=== PATIENT | male | born 1995 | race African-American/Black ===

== ENCOUNTER 2019-02-01 20:08 | Emergency (ER) | payer SELFPAY ==
--- NOTE | 2019-02-01 20:49 | ER ---
Nurse's Notes [facility] Name: Vinod Denny Jr Age: 23 yrs Sex: Male : 1995 Arrival Date: 02/01/2019 Time: 20:12 Bed 7 Private MD: Diagnosis: Vomiting;Diarrhea, unspecified Presentation: 02/01 20:20 Presenting complaint: Patient states: V/D, chills, and headache since this am. Reports aa1 he had to miss to work and needs to be checked out so he can go back. Transition of care: patient was not received from another setting of care. Onset of symptoms was February 01, 2019. Risk Assessment: Do you want to hurt yourself or someone else? Patient reports no desire to harm self or others. Initial Sepsis Screen: Does the patient meet any 2 criteria? No. Patient's initial sepsis screen is negative. Does the patient have a suspected source of infection? No. Patient's initial sepsis screen is negative. Care prior to arrival: None. 20:20 Method Of Arrival: Ambulatory aa1 20:20 Acuity: SERGEY 3 aa1 Triage Assessment: 20:22 General: Appears in no apparent distress. comfortable, Behavior is calm, cooperative, aa1 appropriate for age. Historical: - Allergies: 20:22 No Known Allergies; aa1 - Home Meds: 20:22 None [Active]; aa1 - PMHx: 20:22 Asthma; aa1 - PSHx: 20:22 hand sx; aa1 - Immunization history:: Flu vaccine is not up to date. - Social history:: Smoking status: Patient uses tobacco products, denies chronic smoking, but will smoke occasionally. - Ebola Screening: : Patient denies exposure to infectious person Patient denies travel to an Ebola-affected area in the 21 days before illness onset. - Family history:: not pertinent. Screenin:42 Abuse screen: Denies threats or abuse. Denies injuries from another. Nutritional ak1 screening: No deficits noted. Tuberculosis screening: No symptoms or risk factors identified. Fall Risk None identified. Assessment: 20:45 General: Appears in no apparent distress. Behavior is calm, cooperative. Pain: ak1 Complains of pain in body aches. Neuro: No deficits noted. Neuro: No deficits noted. Cardiovascular: No deficits noted. Respiratory: No deficits noted. GI: Abdomen is flat, non-distended, Bowel sounds present X 4 quads. Abd is soft and non tender X 4 quads. Reports diarrhea, nausea, vomiting, since this morning both his children are in summer school that had N/V/D X1 day. : No signs and/or symptoms were reported regarding the genitourinary system. EENT: No deficits noted. Derm: Reports fever. Musculoskeletal: No signs and/or symptoms reported regarding the musculoskeletal system. Vital Signs: 20:22 BP 131 / 58; Pulse 95; Resp 18; Temp 98.3; Pulse Ox 99% on R/A; Weight 70.31 kg; Height aa1 5 ft. 9 in. (175.26 cm); Pain 5/10; 20:54 BP 121 / 72; Pulse 84; Resp 18; Temp 98.5(O); Pulse Ox 100% on R/A; mw2 20:22 Body Mass Index 22.89 (70.31 kg, 175.26 cm) aa1 ED Course: 20:12 Patient arrived in ED. es 20:21 Triage completed. aa1 20:22 Arm band placed on left wrist. aa1 20:34 Shivam Doe MD is Attending Physician. chandana 20:41 Olga Fernando RN is Primary Nurse. ak1 20:42 Patient has correct armband on for positive identification. Placed in gown. Bed in low ak1 position. Call light in reach. Side rails up X2. Adult w/ patient. Pulse ox on. NIBP on. Door closed. Lights dimmed. 20:51 No provider procedures requiring assistance completed. Patient did not have IV access ak1 during this emergency room visit. Administered Medications: No medications were administered Outcome: 20:49 Discharge ordered by . chandana 20:56 Discharged to home ambulatory, with family. ak1 20:56 Condition: good 20:56 Discharge instructions given to patient, family, Instructed on discharge instructions, follow up and referral plans. medication usage, Demonstrated understanding of instructions, follow-up care, medications, Prescriptions given X 1. 21:01 Patient left the ED. ak1 Signatures: Natalee Manley RN RN aa1 Shivam Doe MD MD cha Salyer, Edna es Krenek, Amber, RN RN ak1 Edson Hopkins mw2
--- NOTE | 2019-02-01 20:50 | EDPHYS ---
Physician Documentation [facility] Name: Vinod Denny Jr Age: 23 yrs Sex: Male : 1995 Arrival Date: 02/01/2019 Time: 20:12 Bed 7 Private MD: ED Physician Shivam Doe HPI: 02/01 20:47 This 23 yrs old Black Male presents to ER via Ambulatory with complaints of Flu chandana Symptoms. 20:47 This 23 yrs old Black Male presents to ER via Ambulatory with complaints of Flu chandana Symptoms. 20:47 The patient presents to the emergency department with nausea, vomiting, diarrhea. chandana Onset: The symptoms/episode began/occurred this morning. Possible causes: unknown. weak, achy, some better now. Associated signs and symptoms: The patient has no apparent associated signs or symptoms. Severity of symptoms: At their worst the symptoms were mild in the emergency department the symptoms are unchanged. The patient has not experienced similar symptoms in the past. Historical: - Allergies: 20:22 No Known Allergies; aa1 - Home Meds: 20:22 None [Active]; aa1 - PMHx: 20:22 Asthma; aa1 - PSHx: 20:22 hand sx; aa1 - Immunization history:: Flu vaccine is not up to date. - Social history:: Smoking status: Patient uses tobacco products, denies chronic smoking, but will smoke occasionally. - Ebola Screening: : Patient denies exposure to infectious person Patient denies travel to an Ebola-affected area in the 21 days before illness onset. - Family history:: not pertinent. ROS: 20:47 Constitutional: Negative for fever, chills, and weight loss, Eyes: Negative for injury, chandana pain, redness, and discharge, ENT: Negative for injury, pain, and discharge, Neck: Negative for injury, pain, and swelling, Cardiovascular: Negative for chest pain, palpitations, and edema, Respiratory: Negative for shortness of breath, cough, wheezing, and pleuritic chest pain, Back: Negative for injury and pain, : Negative for injury, bleeding, discharge, and swelling, MS/Extremity: Negative for injury and deformity, Skin: Negative for injury, rash, and discoloration, Neuro: Negative for headache, weakness, numbness, tingling, and seizure, Psych: Negative for depression, anxiety, suicide ideation, homicidal ideation, and hallucinations, Allergy/Immunology: Negative for hives, rash, and allergies, Endocrine: Negative for neck swelling, polydipsia, polyuria, polyphagia, and marked weight changes, Hematologic/Lymphatic: Negative for swollen nodes, abnormal bleeding, and unusual bruising. 20:47 Abdomen/GI: Positive for nausea and vomiting, diarrhea. Exam: 20:47 Constitutional: This is a well developed, well nourished patient who is awake, alert, chandana and in no acute distress. Head/Face: Normocephalic, atraumatic. Eyes: Pupils equal round and reactive to light, extra-ocular motions intact. Lids and lashes normal. Conjunctiva and sclera are non-icteric and not injected. Cornea within normal limits. Periorbital areas with no swelling, redness, or edema. ENT: Nares patent. No nasal discharge, no septal abnormalities noted. Tympanic membranes are normal and external auditory canals are clear. Oropharynx with no redness, swelling, or masses, exudates, or evidence of obstruction, uvula midline. Mucous membranes moist. Neck: Trachea midline, no thyromegaly or masses palpated, and no cervical lymphadenopathy. Supple, full range of motion without nuchal rigidity, or vertebral point tenderness. No Meningismus. Chest/axilla: Normal chest wall appearance and motion. Nontender with no deformity. No lesions are appreciated. Cardiovascular: Regular rate and rhythm with a normal S1 and S2. No gallops, murmurs, or rubs. Normal PMI, no JVD. No pulse deficits. Respiratory: Lungs have equal breath sounds bilaterally, clear to auscultation and percussion. No rales, rhonchi or wheezes noted. No increased work of breathing, no retractions or nasal flaring. Abdomen/GI: Soft, non-tender, with normal bowel sounds. No distension or tympany. No guarding or rebound. No evidence of tenderness throughout. Back: No spinal tenderness. No costovertebral tenderness. Full range of motion. Male : Normal genitalia with no discharge or lesions. Skin: Warm, dry with normal turgor. Normal color with no rashes, no lesions, and no evidence of cellulitis. MS/ Extremity: Pulses equal, no cyanosis. Neurovascular intact. Full, normal range of motion. Neuro: Awake and alert, GCS 15, oriented to person, place, time, and situation. Cranial nerves II-XII grossly intact. Motor strength 5/5 in all extremities. Sensory grossly intact. Cerebellar exam normal. Normal gait. Psych: Awake, alert, with orientation to person, place and time. Behavior, mood, and affect are within normal limits. Vital Signs: 20:22 BP 131 / 58; Pulse 95; Resp 18; Temp 98.3; Pulse Ox 99% on R/A; Weight 70.31 kg; Height aa1 5 ft. 9 in. (175.26 cm); Pain 5/10; 20:54 BP 121 / 72; Pulse 84; Resp 18; Temp 98.5(O); Pulse Ox 100% on R/A; mw2 20:22 Body Mass Index 22.89 (70.31 kg, 175.26 cm) aa1 MDM: 20:34 Patient medically screened. [facility] 20:48 Data reviewed: vital signs, nurses notes. [facility] Administered Medications: No medications were administered Disposition: 02/01/19 20:49 Discharged to Home. Impression: Vomiting, Diarrhea, unspecified. - Condition is Stable. - Discharge Instructions: Food Choices to Help Relieve Diarrhea, Adult, Diarrhea, Adult, Nausea and Vomiting, Adult, Nausea and Vomiting, Adult, [id number], Diarrhea, Adult, [id number]. - Prescriptions for Zofran 4 mg Oral Tablet - take 1 tablet by ORAL route every 12 hours As needed; 10 tablet. - Medication Reconciliation Form, Thank You Letter, Antibiotic Education, Prescription Opioid Use, Work release form form. - Follow up: Private Physician; When: 2 - 3 days; Reason: Recheck today's complaints, Re-evaluation by your physician. - Problem is new. - Symptoms have improved. Signatures: Natalee Manley RN RN aa1 Shivam Doe MD MD cha Krenek, Amber RN RN ak1 Corrections: (The following items were deleted from the chart) 21:01 20:49 02/01/2019 20:49 Discharged to Home. Impression: Vomiting; Diarrhea, unspecified. ak1 Condition is Stable. Forms are Medication Reconciliation Form, Thank You Letter, Antibiotic Education, Prescription Opioid Use. Follow up: Private Physician; When: 2 - 3 days; Reason: Recheck today's complaints, Re-evaluation by your physician. Problem is new. Symptoms have improved. chandana
== END 2019-02-01 21:01 | disposition home or self-care (01) ==
LOC: ER 20:08
DX: R19.7 Diarrhea, unspecified (principal); Z72.0 Tobacco use
CPT/HCPCS: 99283

== ENCOUNTER 2022-04-15 20:11 | Emergency (ER) | payer OTHER, SELFPAY ==
--- OUTSIDE RECORDS SUMMARY | 2022-04-15 20:14 | XMS REPORT | Continuity of Care Document ---
:1995 Author Organization [facility] t Address [address] [place] [address] Care Team Providers Name Role Phone Asked, No Pcp Primary Care Physician Unavailable Robin Gómez DO Attending Clinician [phone] Problems This patient has no known problems. Allergies, Adverse Reactions, Alerts This patient has no known allergies or adverse reactions. Social History Social Habit Start Date Stop Date Quantity Comments Source Sex Assigned At [birth year] [facility] 00:00:00 00:00:00 Smoking Status Start Date Stop Date Source Tobacco smoking consumption unknown [facility] Medications Ordered Filled Start Stop Current Ordering Indication Dosage Frequency Signature Comments Components Source Medication Medication Date Date Medication? Clinician (SIG) Name Name No known 2020-08 No No known Metho di medications 2-[address] [facility] No known 2020-08 No No known Metho di medications 2-[address] 02[facility]55[facility] l Vital Signs Vital Name Observation Time Observation Value Comments Source Systolic blood 2021-07-29 10:43:00 128 mm[Hg] [facility] pressure Diastolic blood 2021-07-29 10:43:00 74 mm[Hg] [facility] pressure Heart rate 2021-07-29 10:43:00 84 /min [facility] Body temperature 2021-07-29 10:43:00 36.83 [facility] Respiratory rate 2021-07-29 10:43:00 18 /min [facility] Oxygen saturation in 2021-07-29 10:43:00 100 /min [facility] Arterial blood by Pulse oximetry BMI 2021-07-29 08:41:00 22.96 kg/m2 [facility] Body height 2021-07-29 08:41:00 177.8 cm [facility] Body weight 2021-07-29 08:41:00 72.576 kg [facility] Procedures Procedure Date / Time Performed Performing Clinician Sour e STREP SCREEN CULTURE 2021-07-30 09:22:00 [facility] INFLUENZA ANTIGEN 2021-07-29 09:23:00 [facility] RESPIRATORY PATHOGEN 2021-07-29 09:23:00 [facility] PANEL WITH COVID-19 RT-PCR GROUP A STREP, RAPID 2021-07-29 09:22:00 [facility] ANTIGEN Encounters Start End Encounter Admission Attending Care Care Encounter Source Date/Time Date/Time Type Type Clinicians Facility Department ID 2021-08-28 2021-08-28 Outpatient [facility] 00:00:00 00:00:00 5 2021-08-20 2021-08-20 Outpatient [facility] 00:00:00 00:00:00 2 2021-07-29 2021-07-29 Emergency [facility], [id number] [facility] 02:43:00 05:10:[id number] [facility] 3.430.2.7 [facility] .[id number] l .8 2021-07-29 2021-07-29 Emergency [facility], 1.2.840.1 [id number] Methodi 02:43:00 05:10:[id number] [facility] 3.430.2.7 [facility] .[id number] l .8 Results Test Description Test Time Test Comments Results Result Comments Source Strep screen culture 2021-07-31 18:15:39 Test Item Value Reference Range Interpretation Comme nts Strep screen culture No beta hemolytic Sp ecimen InformationSpecimen isolate (test code = Streptococci isolated Source: ThroatSpecimen Site: Not 2246) otherwise speci [facility]ied [facility] [id number] 18:15:39 Test Item Value Reference Range Interpretation Comments Strep screen No beta hemolytic Specimen culture Streptococci InformationSpec imen isolate (test isolated Source: Throat Specimen code = 2246) Site: Not other [place] specified [facility]
[2022-04-15 22:06] LABS: Urine Blood Negative (Negative); Urine Glucose Negative (Negative); Urine Protein 3+ (Negative); Urine Specific Gravity >=1.030 (1.005-1.030); Urine pH 5.5 (5.0-7.0)
[2022-04-15] MEDS ORDERED: NA CHLORIDE 0.9% 1,000 ML ONE (22:19)
[2022-04-15] MEDS ORDERED: ONDANSETRON 4 MG/2 ML VIAL ONE (22:19)
[2022-04-15] MEDS ORDERED: FAMOTIDINE 20 MG/2 ML VIAL IV ONE (22:20)
[2022-04-15 22:28] LABS: Barbiturates NEGATIVE (NEGATIVE); Benzodiazepines NEGATIVE (NEGATIVE); Cocaine NEGATIVE (NEGATIVE); METHAMPHETAM NEGATIVE (NEGATIVE); Methadone NEGATIVE (NEGATIVE); Opiates NEGATIVE (NEGATIVE); Phencyclidine NEGATIVE (NEGATIVE); THC Cannibis POSITIVE (NEGATIVE); Urine Bacteria 20-50 /HPF (<20); Urine Mucus 4+ /HPF (None Seen); Urine RBC <5 /HPF (None Seen)
--- NOTE | 2022-04-15 22:36 | RAD REPORT ---
EXAM DESCRIPTION: CTAbdomen Pelvis W Contrast - 04/15/2022 10:29 pm CLINICAL HISTORY: lower abdomen pain COMPARISON: No comparisons TECHNIQUE: CT of the abdomen and pelvis was performed. All CT scans are performed using dose optimization technique as appropriate and may include automated exposure control or mA/KV adjustment according to patient size. FINDINGS: Lower chest: No acute abnormality. Liver: No acute abnormality or suspicious lesions. Biliary: No biliary ductal dilatation. Stomach: No significant focal abnormality. Duodenum: No significant focal abnormality. Pancreas: No significant abnormality. Spleen: No significant abnormality. Adrenal: No suspicious lesions. Kidney/ureter: No hydronephrosis. No renal calculi. Too small to characterize and/or benign appearing renal lesions are noted. Retroperitoneum: No retroperitoneal adenopathy. Vascular: No aneurysm. Bowel: No significant focal abnormality. Normal appendix. Peritoneum: No ascites or free air. Bladder: Grossly unremarkable. Reproductive: No adnexal masses. Bones: No acute fracture. Other: n/a IMPRESSION: No acute intra-abdominal or pelvic finding. Normal appendix.
[2022-04-15 23:02] LABS: Absolute Lymphocytes (CBC) 0.7 K/uL (0.7-4.9); Hematocrit 46.5 % (39.6-49.0); Lymphocytes % 11.8 % (15.3-44.8); MCV 89.5 fL (80-100); MPV 8.1 fL (7.6-11.3); RBC Red Blood Cell Count 5.19 M/uL (4.33-5.43)
[2022-04-15 23:25] LABS: Albumin 3.6 g/dL (3.4-5.0); Bilirubin Total 0.7 mg/dL (0.2-1.0); Potassium 3.9 mmol/L (3.5-5.1); Protein, Total 8.4 g/dL (6.4-8.2)
--- NOTE | 2022-04-15 23:50 | EDPHYS ---
Physician Documentation [facility] Name: Vinod Denny Jr Age: 26 yrs Sex: Male : 1995 Arrival Date: 04/15/2022 Time: 20:14 Bed 18 Private MD: ED Physician Shivam Doe HPI: 04/15 21:35 This 26 yrs old Black Male presents to ER via Ambulatory with complaints of cp Nausea/Vomiting/Diarrhea. 21:35 The patient presents to the emergency department with nausea, that is moderate, cp vomiting, that is intermittent, diarrhea, that is intermittent, abdominal pain, of the mid abdomen. Onset: The symptoms/episode began/occurred 4 day(s) ago. Possible causes: sick contacts, by family. Associated signs and symptoms: Pertinent positives: abdominal pain, anorexia, Pertinent negatives: constipation, fever, GI bleeding. Severity of symptoms: in the emergency department the symptoms are unchanged despite home interventions. Historical: - Allergies: 21:06 No Known Allergies; kb3 - Home Meds: 21:06 None [Active]; kb3 - PMHx: 21:06 Asthma; kb3 - PSHx: 21:06 None; kb3 - Immunization history:: Adult Immunizations up to date, Client reports receiving the 2nd dose of the Covid vaccine, Last tetanus immunization: < 5 years ago. - Social history:: Smoking status: Patient reports the use of cigarette tobacco products, smokes one-half pack cigarettes per day. ROS: 21:40 Constitutional: Negative for body aches, chills, fever. cp 21:40 Eyes: Negative for injury, pain, redness, and discharge. cp 21:40 ENT: Negative for drainage from ear(s), ear pain, sore throat, difficulty swallowing, difficulty handling secretions. 21:40 Cardiovascular: Negative for chest pain. 21:40 Respiratory: Negative for cough, shortness of breath, wheezing. 21:40 Abdomen/GI: Positive for abdominal pain, nausea, vomiting, and diarrhea, anorexia, Negative for hematemesis, black/tarry stool, rectal bleeding. 21:40 Back: Negative for pain at rest, pain with movement. 21:40 : Negative for urinary symptoms. 21:40 Neuro: Negative for altered mental status, dizziness, headache, syncope, weakness. 21:40 All other systems are negative. Exam: 21:45 Constitutional: The patient appears in no acute distress, alert, awake, cp non-diaphoretic, non-toxic, well developed, well nourished. 21:45 Head/Face: Normocephalic, atraumatic. cp 21:45 Eyes: Periorbital structures: appear normal, Conjunctiva: normal, no exudate, no injection, Sclera: no appreciated abnormality, Lids and lashes: appear normal, bilaterally. 21:45 ENT: External ear(s): are unremarkable, Nose: is normal, Mouth: Lips: moist, Oral mucosa: pink and intact, moist, Posterior pharynx: Airway: no evidence of obstruction, patent. 21:45 Neck: ROM/movement: is normal, is supple, without pain, no range of motions limitations. 21:45 Chest/axilla: Inspection: normal, Palpation: is normal, no crepitus, no tenderness. 21:45 Cardiovascular: Rate: normal, Rhythm: regular. 21:45 Respiratory: the patient does not display signs of respiratory distress, Respirations: normal, no use of accessory muscles, Breath sounds: are clear throughout, no decreased breath sounds, no stridor, no wheezing. 21:45 Abdomen/GI: Inspection: abdomen appears normal, Bowel sounds: active, all quadrants, Palpation: soft, in all quadrants, mild abdominal tenderness, in the umbilical area, rebound tenderness, is not appreciated, involuntary guarding, is not appreciated. 21:45 Back: CVA tenderness, is absent. 21:45 Neuro: Orientation: to person, place \T\ time. Mentation: is normal, Motor: moves all fours, strength is normal, Sensation: is normal. Vital Signs: 21:04 BP 135 / 85; Pulse 65; Resp 18; Temp 98.6; Pulse Ox 99% ; Weight 74.84 kg; Height 5 ft. kb3 9 in. (175.26 cm); Pain 5/10; 23:30 BP 138 / 86; Pulse 71; Resp 18 S; Pulse Ox 100% on R/A; lg3 21:04 Body Mass Index 24.37 (74.84 kg, 175.26 cm) kb3 MDM: 21:16 Patient medically screened. cp 23:47 Data reviewed: vital signs, nurses notes, lab test result(s), radiologic studies, CT cp scan. 23:47 Differential diagnosis: gastritis, appendicitis, viral gastroenteritis, cp gastroenteritis. Counseling: I had a detailed discussion with the patient and/or guardian regarding: the historical points, exam findings, and any diagnostic results supporting the discharge/admit diagnosis, lab results, radiology results, to return to the emergency department if symptoms worsen or persist or if there are any questions or concerns that arise at home. 04/15 21:30 Order name: CBC with Diff; Complete Time: 23:26 04/15 23:26 Interpretation: Normal except: NGUYEN% 78.4; LYM% 11.8. 04/15 21:30 Order name: CMP; Complete Time: 23:26 04/15 23:26 Interpretation: Normal except: NA 133; GLUC 116; GFR 84; AST 13; TP 8.4; GLOB 4.8; A/G cp 0.8. 04/15 21:30 Order name: Lipase; Complete Time: 23:26 04/15 23:26 Interpretation: Reviewed. 04/15 21:30 Order name: Urine Microscopic Only; Complete Time: 22:49 04/15 22:50 Interpretation: Normal except: UBACT 20-50; MUCUS 4+; HYAL >20. 04/15 21:30 Order name: UDS; Complete Time: 22:49 04/15 23:27 Interpretation: Normal except: THC POSITIVE. 04/15 22:06 Order name: Urine Dipstick-Ancillary; Complete Time: 22:49 [facility] 04/15 22:49 Interpretation: Normal except: UKET 1+; UPROT 3+. 04/15 21:30 Order name: IV Saline Lock; Complete Time: 21:48 04/15 21:30 Order name: Labs collected and sent; Complete Time: 21:48 04/15 21:30 Order name: Urine Dipstick-Ancillary (obtain specimen); Complete Time: 22:08 04/15 21:31 Order name: CT Abd/Pelvis - IV Contrast Only; Complete Time: 22:49 04/15 22:50 Interpretation: Report reviewed. 04/15 22:31 Order name: Urine Culture EDNE 04/15 23:27 Order name: PO challenge; Complete Time: 23:43 cp Administered Medications: 22:16 Drug: NS 0.9% 1000 ml Route: IV; Rate: 1 bolus; Site: right antecubital; lg3 23:19 Follow up: Response: No adverse reaction; IV Status: Completed infusion; IV Intake: lg3 1000ml 22:16 Drug: Pepcid (famotidine) 20 mg Route: IVP; Site: right antecubital; lg3 23:20 Follow up: Response: No adverse reaction lg3 22:16 Drug: Zofran (Ondansetron) 4 mg Route: IVP; Site: right antecubital; lg3 23:20 Follow up: Response: No adverse reaction; Pain is decreased lg3 Disposition Summary: 04/15/22 23:48 Discharge Ordered Location: Home cp Problem: new cp Symptoms: have improved cp Condition: Stable cp Diagnosis - Nausea with vomiting, unspecified cp - Diarrhea, unspecified cp Followup: cp - With: Private Physician - When: 1 - 2 days - Reason: Worsening of condition Discharge Instructions: - Discharge Summary Sheet cp - Food Choices to Help Relieve Diarrhea, Adult cp - Diarrhea, Adult cp - Nausea and Vomiting, Adult cp Forms: - Medication Reconciliation Form cp - Thank You Letter cp - Antibiotic Education cp - Prescription Opioid Use cp - Work release form tw5 Prescriptions: - Zofran 4 mg Oral Tablet - take 1 tablet by ORAL route every 12 hours As needed; 20 tablet; Refills: 0, cp Product Selection Permitted Signatures: Dispatcher [employer] EDMS Shivam River PA PA cp Marla Valdes, RN RN lg3 Cristiane Rosario RN RN kb3 Corrections: (The following items were deleted from the chart) 23:26 23:26 Normal except: NA 133; GLUC 116; GFR 84. cp cp
--- NOTE | 2022-04-15 23:50 | ER ---
Nurse's Notes [facility] Name: Vinod Denny Jr Age: 26 yrs Sex: Male : 1995 Arrival Date: 04/15/2022 Time: 20:14 Bed 18 Private MD: Diagnosis: Nausea with vomiting, unspecified;Diarrhea, unspecified Presentation: 04/15 21:04 Chief complaint: Patient states: Pt reports N/V/D x4 days. Multiple members of the [facility] household had same symptoms but have improved. Pt denies fever, +chills, +body aches. Coronavirus screen: Vaccine status: Patient reports being unvaccinated. chills, cough unrelated to allergies, diarrhea, fatigue, muscle pain, nausea, shaking with chills, sore throat. Ebola Screen: Patient negative for fever greater than or equal to 101.5 degrees Fahrenheit, and additional compatible Ebola Virus Disease symptoms Patient denies exposure to infectious person. Patient denies travel to an Ebola-affected area in the 21 days before illness onset. No symptoms or risks identified at this time. Initial Sepsis Screen: Does the patient meet any 2 criteria? No. Patient's initial sepsis screen is negative. Does the patient have a suspected source of infection? No. Patient's initial sepsis screen is negative. Risk Assessment: Do you want to hurt yourself or someone else? Patient reports no desire to harm self or others. Onset of symptoms was April 11, 2022. 21:04 Method Of Arrival: Ambulatory [facility] 21:04 Acuity: SERGEY 3 3 Triage Assessment: 21:06 General: Appears in no apparent distress. Behavior is calm, cooperative. Pain: kb3 Complains of pain in head Pain does not radiate. GI: Reports diarrhea, nausea, vomiting. Historical: - Allergies: 21:06 No Known Allergies; 3 - Home Meds: 21:06 None [Active]; kb3 - PMHx: 21:06 Asthma; kb3 - PSHx: 21:06 None; kb3 - Immunization history:: Adult Immunizations up to date, Client reports receiving the 2nd dose of the Covid vaccine, Last tetanus immunization: < 5 years ago. - Social history:: Smoking status: Patient reports the use of cigarette tobacco products, smokes one-half pack cigarettes per day. Screenin:20 Abuse screen: Denies threats or abuse. Denies injuries from another. Nutritional lg3 screening: No deficits noted. Tuberculosis screening: No symptoms or risk factors identified. Fall Risk None identified. Assessment: 21:20 General: Appears in no apparent distress. uncomfortable, Behavior is calm, cooperative. lg3 Pain: Complains of pain in abdomen and head Pain currently is 5 out of 10 on a pain scale. Quality of pain is described as crampy, pressure. Neuro: No deficits noted. Level of Consciousness is awake, alert, obeys commands, Oriented to person, place, time, situation. Cardiovascular: No deficits noted. Denies chest pain, shortness of breath, Capillary refill < 3 seconds Clubbing of nail beds is absent JVD is absent Patient's skin is warm and dry. Respiratory: No deficits noted. Airway is patent Trachea midline Respiratory effort is even, unlabored, Respiratory pattern is regular, symmetrical, Breath sounds are clear bilaterally. GI: Abdomen is flat, non-distended, Bowel sounds present X 4 quads. Reports cramping, diarrhea, intolerance of fluids, intolerance of food, nausea, vomiting. : No deficits noted. No signs and/or symptoms were reported regarding the genitourinary system. EENT: No deficits noted. No signs and/or symptoms were reported regarding the EENT system. Derm: No deficits noted. No signs and/or symptoms reported regarding the dermatologic system. Skin is intact, is healthy with good turgor, Skin is dry, Skin is normal, Skin temperature is warm. Musculoskeletal: No deficits noted. No signs and/or symptoms reported regarding the musculoskeletal system. Circulation, motion, and sensation intact. Range of motion: intact in all extremities. 23:28 Reassessment: Patient appears in no apparent distress at this time. No changes from lg3 previously documented assessment. Patient and/or family updated on plan of care and expected duration. Pain level reassessed. Patient is alert, oriented x 3, equal unlabored respirations, skin warm/dry/pink. Vital Signs: 21:04 BP 135 / 85; Pulse 65; Resp 18; Temp 98.6; Pulse Ox 99% ; Weight 74.84 kg; Height 5 ft. kb3 9 in. (175.26 cm); Pain 5/10; 23:30 BP 138 / 86; Pulse 71; Resp 18 S; Pulse Ox 100% on R/A; lg3 21:04 Body Mass Index 24.37 (74.84 kg, 175.26 cm) kb3 ED Course: 20:14 Patient arrived in ED. ja2 20:31 Shivam River PA is PHCP. cp 20:31 Shivam Doe MD is Attending Physician. cp 21:06 Triage completed. kb3 21:06 Arm band placed on. kb3 21:11 Marla Valdes, RN is Primary Nurse. lg3 21:20 Patient has correct armband on for positive identification. Bed in low position. Call lg3 light in reach. Side rails up X 1. Client placed on continuous cardiac and pulse oximetry monitoring. NIBP monitoring applied. Door closed. Noise minimized. Warm blanket given. Family accompanied patient. 21:49 CBC with Diff Sent. lg3 21:49 CMP Sent. lg3 21:49 Lipase Sent. lg3 21:49 Inserted saline lock: 20 gauge in right antecubital area, using aseptic technique. lg3 Blood collected. 22:05 UDS Sent. wm 22:06 Urine Microscopic Only Sent. wm 22:06 Urine collected: clean catch specimen. wm 22:31 CT Abd/Pelvis - IV Contrast Only In Process Unspecified. EDMS 23:57 No provider procedures requiring assistance completed. IV discontinued, intact, tw5 bleeding controlled, No redness/swelling at site. Pressure dressing applied. Administered Medications: 22:16 Drug: NS 0.9% 1000 ml Route: IV; Rate: 1 bolus; Site: right antecubital; lg3 23:19 Follow up: Response: No adverse reaction; IV Status: Completed infusion; IV Intake: lg3 1000ml 22:16 Drug: Pepcid (famotidine) 20 mg Route: IVP; Site: right antecubital; lg3 23:20 Follow up: Response: No adverse reaction lg3 22:16 Drug: Zofran (Ondansetron) 4 mg Route: IVP; Site: right antecubital; lg3 23:20 Follow up: Response: No adverse reaction; Pain is decreased lg3 Medication: 23:58 VIS not applicable for this client. tw5 Intake: 23:19 IV: 1000ml; Total: 1000ml. lg3 Outcome: 23:48 Discharge ordered by . cp 23:57 Discharged to home ambulatory, with significant other. tw5 23:57 Condition: stable 23:57 Discharge instructions given to patient, Instructed on discharge instructions, follow up and referral plans. medication usage, Demonstrated understanding of instructions, follow-up care, medications, Prescriptions given X 1. 04/16 00:04 Patient left the ED. tw5 Signatures: Dispatcher [employer] EDMS Shivam River PA PA cp Gibson, Lacie, RN RN lg3 Becky Chow Jessica ja2 Wood, Tiffany tw5 Cristiane Rosario, RN RN kb3
[2022-04-16 03:59] VITALS: TEMP 98.6
[2022-04-16 04:05] VITALS: BP 138/86; O2SAT 100
== END 2022-04-16 00:04 | disposition home or self-care (01) ==
LOC: ER 20:11
DX: R11.2 Nausea with vomiting, unspecified (principal); R19.7 Diarrhea, unspecified; F17.210 Nicotine dependence, cigarettes, uncomplicated
CPT/HCPCS: 96361; 87088; 85025; 87086; 36415; 82565; 83690; 80053; 80307; 74177; 96375; 96374; 99284; Q9967; J7030; J2405; 81003; 81015

== ENCOUNTER 2022-05-11 09:53 | Emergency (ER) | payer OTHER ==
[2022-05-11] MEDS ORDERED: dexAMETHasone 10 MG/ML VIAL ONE (10:38)
--- OUTSIDE RECORDS SUMMARY | 2022-05-11 10:56 | XMS REPORT | Continuity of Care Document ---
:1995 Author Organization [facility] Address [address] [place] [address] Dr. Morrison [address] [place] [id number] Care Team Providers Name Role Phone Asked, No Pcp Primary Care Physician Unavailable Robin Gómez DO Attending Clinician [phone] Problems This patient has no known problems. Allergies, Adverse Reactions, Alerts This patient has no known allergies or adverse reactions. Social History Social Habit Start Date Stop Date Quantity Comments Source Sex Assigned At [birth year] [facility] 00:00:00 00:00:00 Smoking Status Start Date Stop Date Source Tobacco smoking consumption unknown [facility] Medications Ordered Filled Start Stop Current Ordering [...] Source Systolic blood 2021-07-29 10:43:00 128 mm[Hg] [facility] pressure Diastolic blood 2021-07-29 10:43:00 74 mm[Hg] [facility] pressure Heart rate 2021-07-29 10:43:00 84 [facility] 2021-07-29 10:43:00 36.83 [facility] Respiratory rate 2021-07-29 10:43:00 18 /min [facility] Oxygen saturation in 2021-07-29 10:43:00 100 /min [facility] Arterial blood by Pulse oximetry BMI 2021-07-29 08:41:00 22.96 kg/m2 [facility] Body height 2021-07-29 08:41:00 177.8 cm [facility] Body weight 2021-07-29 08:41:00 72.576 kg [facility] Procedures Procedure Date / Time Performed Performing Clinician Sour e STREP SCREEN CULTURE 2021-07-30 09:22:00 [facility] INFLUENZA ANTIGEN 2021-07-29 09:23:00 [facility] RESPIRATORY PATHOGEN 2021-07-29 09:23:00 [facility] PANEL WITH COVID-19 RT-PCR GROUP A STREP, RAPID 2021-07-29 09:22:00 [facility] ANTIGEN Encounters Start End Encounter Admission Attending Care Care Encounter Source Date/Time Date/Time Type Type Clinicians Facility Department ID 2021-08-28 2021-08-28 Outpatient [facility] 00:00:00 00:00:00 5 2021-08-20 2021-08-20 Outpatient [facility] 00:00:00 00:00:00 2 2021-07-29 2021-07-29 Emergency [facility], [id number] [facility] 02:43:00 05:10:[id number] [facility] 3.430.2.7 [facility] .[id number] l .8 2021-07-29 2021-07-29 Emergency [facility], [id number] [facility] 02:43:00 05:10:[id number] [facility] 3.430.2.7 [facility] .[id number] l .8 Results Test Description Test Time Test Comments Results Result Comments Source Strep screen culture 2021-07-31 18:15:39 Test Item Value Reference Range Interpretation Comme nts Strep screen culture No beta hemolytic Sp ecimen InformationSpecimen isolate (test code = Streptococci isolated Source: ThroatSpecimen Site: Not 2246) [facility] [id number] 18:15:39 Test Item Value Reference Range Interpretation Comments Strep screen No beta hemolytic Specimen culture Streptococci InformationSpec imen isolate (test isolated Source: Throat Specimen code = 2246) Site: Not other [facility] [id number] 18:15:39 Test Item Value Reference Range Interpretation Comments Strep screen No beta hemolytic Specimen culture Streptococci InformationSpec imen isolate (test isolated Source: Throat Specimen code = 2246) Site: Not other monte specified [facility]
--- NOTE | 2022-05-11 11:00 | RAD REPORT ---
EXAM DESCRIPTION: CT - Soft Tissue Neck W/Contr - 05/11/2022 10:49 am CLINICAL HISTORY: swelling, chills, myalgia, difficulty swallowing COMPARISON: No comparisons TECHNIQUE: During dynamic enhancement using 100 milliliters nonionic IV contrast, axial 5 millimeter thick images of the neck were obtained. All CT scans are performed using dose optimization technique as appropriate and may include automated exposure control or mA/KV adjustment according to patient size. FINDINGS: Intracranial portion the examination is unremarkable. No globe or orbital content abnormal ity seen. Patient has unusual angulation of the nasal septum. Soft tissue component of the anterior m ost nasal septum deviates to the right. There is left deviation of the anterior margin of the bony se ptum. Turbinates are unremarkable. No nasal passage mass. The parotid glands, submandibular glands an d thyroid gland tissues are unremarkable. Patient has prominent hypertrophy of the adenoid tissue along with enlarged tonsils. Lymphatic tissue at the base of the tongue is thickened and shows low-level uniform enhancement. No focal mass of the pharyngeal tissue seen. Parapharyngeal fat is normal in appearance. Soft palate is also thickened. Epiglottis is normal. No laryngeal abnormality. No tracheal abnormality seen. No acute bone finding or significant vascular finding. IMPRESSION: Tonsillitis and adenoiditis pattern with no abscess findings. No focal pharyngeal mass. Epiglottis is normal.
--- NOTE | 2022-05-11 11:44 | ER ---
Nurse's Notes [facility] Name: Vinod Denny Jr Age: 26 yrs Sex: Male : 1995 Arrival Date: 05/11/2022 Time: 09:54 Bed 18 Private MD: Diagnosis: Acute streptococcal tonsillitis, unspecified Presentation: 05/11 10:03 Chief complaint: Patient states: 3 DAYS CIFUENTES, CHILLS, MYALGIA. Coronavirus screen: At bp this time, the client does not indicate any symptoms associated with coronavirus-19. Ebola Screen: No symptoms or risks identified at this time. Initial Sepsis Screen: Does the patient meet any 2 criteria? No. Patient's initial sepsis screen is negative. Does the patient have a suspected source of infection? No. Patient's initial sepsis screen is negative. Risk Assessment: Do you want to hurt yourself or someone else? Patient reports no desire to harm self or others. Onset of symptoms is unknown. 10:03 Method Of Arrival: Ambulatory bp 10:03 Acuity: SERGEY 3 bp Triage Assessment: 10:05 General: Appears in no apparent distress. Behavior is cooperative, appropriate for age, bp anxious. Pain: Complains of pain in neck. EENT: Reports difficulty swallowing. Neuro: No deficits noted. Cardiovascular: No deficits noted. Respiratory: No deficits noted. GI: Reports nausea. : No signs and/or symptoms were reported regarding the genitourinary system. Derm: No deficits noted. Musculoskeletal: No deficits noted. Historical: - Allergies: 10:05 No Known Allergies; bp - Home Meds: 10:05 None [Active]; bp - PMHx: 10:05 Asthma; bp - Immunization history:: Adult Immunizations up to date, Client reports having NOT received the Covid vaccine. - Social history:: Smoking status: Patient reports the use of cigarette tobacco products, denies chronic smoking, but will smoke occasionally. Screenin:06 Abuse screen: Denies threats or abuse. Denies injuries from another. Nutritional bp screening: No deficits noted. Tuberculosis screening: No symptoms or risk factors identified. Fall Risk None identified. Assessment: 10:06 General: SEE TRIAGE NOTE. bp 11:23 Reassessment: PT RETURNED FROM CT. bp 12:19 Reassessment: DC HOME. Respiratory: Airway is patent Respiratory effort is even, bp unlabored, Breath sounds are clear bilaterally. EENT: Throat is reddened. Vital Signs: 10:03 BP 127 / 65; Pulse 79; Resp 16; Temp 99.6; Pulse Ox 98% ; Weight 72.57 kg; Height 5 ft. bp 9 in. (175.26 cm); 11:18 BP 138 / 72; Pulse 88; Resp 16; Pulse Ox 99% ; bp 12:19 BP 127 / 69; Pulse 79; Resp 16; Pulse Ox 99% ; bp 10:03 Body Mass Index 23.63 (72.57 kg, 175.26 cm) bp ED Course: 09:54 Patient arrived in ED. am2 09:55 Rachael Ramon MD is Attending Physician. nd2 10:03 Dejuan Melendez, NILS is Primary Nurse. bp 10:05 Triage completed. bp 10:05 Arm band placed on. bp 10:06 Patient has correct armband on for positive identification. Bed in low position. Call bp light in reach. Side rails up X2. 10:13 [facility] 10:32 Strep Sent. [facility] 10:32 Influenza Screen (a \\T\\ B) Sent. 3 10:32 SARS-COV-2 RT PCR (Document "Date of Onset" if Symptomatic) Sent. 3 10:40 Inserted saline lock: 20 gauge in right antecubital area, using aseptic technique. bp 12:19 No provider procedures requiring assistance completed. IV discontinued, intact, bp bleeding controlled, No redness/swelling at site. Pressure dressing applied. Administered Medications: 10:40 Drug: Decadron - Dexamethasone 10 mg Route: IVP; Site: right antecubital; bp Medication: 10:06 VIS not applicable for this client. bp Outcome: 11:43 Discharge ordered by . karan 12:19 Discharged to home ambulatory. bp 12:19 Condition: stable 12:19 Discharge instructions given to patient, Instructed on discharge instructions, follow up and referral plans. medication usage, Demonstrated understanding of instructions, follow-up care, medications, Prescriptions given X 1. 12:22 Patient left the ED. bp Signatures: Raoul Magana PA PA Amara Casey 2 Shannon Henderson [facility] Dejuan Melendez, NILS RN bp Tristen, Rachael, MD MD sd2
--- NOTE | 2022-05-11 11:44 | EDPHYS ---
Physician Documentation [facility] Name: Vinod Denny Jr Age: 26 yrs Sex: Male : 1995 Arrival Date: 05/11/2022 Time: 09:54 Bed 18 Private MD: ED Physician Rachael Ramon HPI: 05/11 09:59 This 26 yrs old Black Male presents to ER via Ambulatory with complaints of Sore jmm Throat, Diarrhea, bodyaches. 09:59 The patient presents with sore throat. Onset: The symptoms/episode began/occurred jmm gradually. Modifying factors: The symptoms are alleviated by nothing, the symptoms are aggravated by nothing. Associated signs and symptoms: Pertinent negatives fever. It is unknown whether or not the patient has had similar symptoms in the past. Historical: - Allergies: 10:05 No Known Allergies; bp - Home Meds: 10:05 None [Active]; bp - PMHx: 10:05 Asthma; bp - Immunization history:: Adult Immunizations up to date, Client reports having NOT received the Covid vaccine. - Social history:: Smoking status: Patient reports the use of cigarette tobacco products, denies chronic smoking, but will smoke occasionally. ROS: 09:59 Constitutional: Positive for body aches, chills. jmm 09:59 ENT: Positive for sore throat. 09:59 All other systems are negative. Exam: 09:59 Constitutional: This is a well developed, well nourished patient who is awake, alert, jmm and in no acute distress. Head/Face: atraumatic. Eyes: EOMI, no conjunctival erythema appreciated 09:59 Neck: Trachea midline, Supple Chest/axilla: Normal chest wall appearance and motion. Cardiovascular: Regular rate and rhythm. No edema appreciated Respiratory: Normal respirations, no respiratory distress appreciated Abdomen/GI: Non distended Back: Normal ROM Skin: General appearance color normal MS/ Extremity: Moves all extremities, no obvious deformities appreciated, no edema noted to the lower extremities Neuro: Awake and alert Psych: Behavior is normal, Mood is normal, Patient is cooperative and pleasant 09:59 ENT: Posterior pharynx: Tonsils: enlarged on the right, enlarged on the left, with erythema, with exudate, erythema, that is moderate. Vital Signs: 10:03 BP 127 / 65; Pulse 79; Resp 16; Temp 99.6; Pulse Ox 98% ; Weight 72.57 kg; Height 5 ft. bp 9 in. (175.26 cm); 11:18 BP 138 / 72; Pulse 88; Resp 16; Pulse Ox 99% ; bp 12:19 BP 127 / 69; Pulse 79; Resp 16; Pulse Ox 99% ; bp 10:03 Body Mass Index 23.63 (72.57 kg, 175.26 cm) bp MDM: 10:18 Patient medically screened. [facility] 11:43 Data reviewed: vital signs, nurses notes. Counseling: I had a detailed discussion with xin the patient and/or guardian regarding: the historical points, exam findings, and any diagnostic results supporting the discharge/admit diagnosis, lab results, radiology results, the need for outpatient follow up, to return to the emergency department if symptoms worsen or persist or if there are any questions or concerns that arise at home. 05/11 09:59 Order name: SARS-COV-2 RT PCR (Document "Date of Onset" if Symptomatic) sd2 05/11 09:59 Order name: Influenza Screen (a \\T\\ B) sd2 05/11 09:59 Order name: Strep sd2 05/11 10:53 Order name: Group A Streptococcus Rapid Sc; Complete Time: 11:03 EDMS 05/11 11:06 Order name: SARS-COV-2 RT PCR; Complete Time: 11:46 EDMS 05/11 11:08 Order name: Influenza Screen (A ; Complete Time: 11:46 EDMS 05/11 10:19 Order name: Saline Lock; Complete Time: 10:42 [facility] 05/11 10:19 Order name: CT Soft Tissue Neck W/contr [facility] 05/11 11:01 Order name: CT; Complete Time: 11:03 EDMS Administered Medications: 10:40 Drug: Decadron - Dexamethasone 10 mg Route: IVP; Site: right antecubital; bp Disposition: 17:46 STAFF ATTESTATION: The patient's history, exam findings, diagnostics and a summary of sd2 any interventions or procedures was reviewed in detail with the ED DIAN. I confirm the diagnosis as documented by the DIAN and I agree with the care plan articulated in the disposition section with regards to our discussion of the patient's case. Rachael Ramon MD. Disposition Summary: 05/11/22 11:43 Discharge Ordered Location: Home [facility] Condition: Stable [facility] Diagnosis - Acute streptococcal tonsillitis, unspecified [facility] Followup: jmm - With: Private Physician - When: 2 - 3 days - Reason: Recheck today's complaints, Continuance of care, Re-evaluation by your physician Discharge Instructions: - Discharge Summary Sheet [facility] - Strep Throat, Adult [facility] Forms: - Medication Reconciliation Form [facility] - Thank You Letter [facility] - Antibiotic Education [facility] - Prescription Opioid Use [facility] Prescriptions: - Amoxicillin 875 mg Oral Tablet - take 1 tablet by ORAL route every 12 hours for 10 days; 20 tablet; Refills: 0, jmm Product Selection Permitted Signatures: Dispatcher [employer] EDRaoul Lorenzo PA PA jmm Peltier, Brian, NILS RN Rachael Plunkett MD MD sd2
[2022-05-11 15:49] VITALS: TEMP 99.6
[2022-05-11 15:50] VITALS: O2SAT 99
[2022-05-11 15:51] VITALS: BP 127/69
== END 2022-05-11 12:22 | disposition home or self-care (01) ==
LOC: ER 09:53
DX: J03.00 Acute streptococcal tonsillitis, unspecified (principal); F17.210 Nicotine dependence, cigarettes, uncomplicated; Z20.822 Contact with and (suspected) exposure to COVID-19
CPT/HCPCS: 87070; 87081; 87804 ×2; 70491; 96374; 99284; U0003; Q9967; J1100